=== PATIENT | male | born 1965 | race Caucasian/White ===

== ENCOUNTER 2016-09-07 22:02 | Emergency (ER) | payer MEDICAID ==
[~2016-09-07] VITALS: Ht 167.6 cm; Wt 90.7 kg
[2016-09-07 22:32] VITALS: BP 111/70
[2016-09-07] MEDS ORDERED: KETOROLAC TROMETHAMINE INJ 60 MG/2 ML VIAL IM ONE ×2 (23:30→23:45)
[2016-09-07] MEDS ORDERED: HYDROCODONE/APAP 10/325MG 1 EA TABLET PO ONE (23:30)
[2016-09-07] MEDS ORDERED: DEXAMETHASONE SOD PHOSPHATE 4 MG/ML VIAL IM ONE (23:30)
[2016-09-07] MEDS ORDERED: DEXAMETHASONE SOD PHOSPHATE 4 MG/ML VIAL ONE (23:44)
[2016-09-07] MEDS ORDERED: HYDROCODONE/APAP 10/325MG 1 EA TABLET ONE (23:44)
== END 2016-09-08 00:10 | disposition home or self-care (01) ==
LOC: ER 22:18
DX: M54.2 Cervicalgia (principal); M54.6 Pain in thoracic spine; V49.40XA Driver injured in collision with unspecified motor vehicles in traffic accident, initial encounter; Y93.89 Activity, other specified; Y92.413 State road as the place of occurrence of the external cause; Y99.8 Other external cause status
CPT/HCPCS: A4606; A6402; J1100; J1885; Z7610

== ENCOUNTER 2019-04-02 03:31 | Emergency (ER) | payer MEDICAID, OTHER ==
[2019-04-02] MEDS ORDERED: ONDANSETRON HCL/PF 4 MG/2 ML VIAL ONE (04:19)
[2019-04-02] MEDS ORDERED: NITROGLYCERIN PACKET 1 GM PACKET TD ONE (04:30)
[2019-04-02] MEDS ORDERED: NITROGLYCERIN PACKET 1 GM PACKET ONE (04:30)
[2019-04-02] MEDS ORDERED: ASPIRIN 81 MG TAB.CHEW PO ONE (04:30)
[2019-04-02] MEDS ORDERED: HYDROMORPHONE INJ 2 MG/ML DISP.SYRIN IV ONE (04:30)
[2019-04-02] MEDS ORDERED: HYDROMORPHONE INJ 2 MG/ML DISP.SYRIN ONE (04:30)
[2019-04-02] MEDS ORDERED: IV NS 0.9% 500 ML BAG IV ONE (04:30)
[2019-04-02] MEDS ORDERED: ONDANSETRON HCL/PF 4 MG/2 ML VIAL IVP ONE (04:30)
[2019-04-02] MEDS ORDERED: diphenhydrAMINE HCL 50 MG/ML VIAL IV ONE (04:30)
[2019-04-02] MEDS ORDERED: ASPIRIN 81 MG TAB.CHEW ONE (04:31)
[2019-04-02] MEDS ORDERED: diphenhydrAMINE HCL 50 MG/ML VIAL ONE (04:31)
== END 2019-04-02 08:34 | disposition home or self-care (01) ==
DX: R51 Headache (principal); R07.89 Other chest pain; R21 Rash and other nonspecific skin eruption; R20.2 Paresthesia of skin; F17.200 Nicotine dependence, unspecified, uncomplicated; Z71.6 Tobacco abuse counseling
CPT/HCPCS: 29125; 36415; 70450; 71045; 72125; 80048; 80076; 83880; 84484 ×2; 85025; 85378; 85730; 93005; 96374; 96375; 99284; 99406; J1170; J1200; J2405; J7040

== ENCOUNTER 2019-11-03 01:35 | Emergency (ER) | payer MEDICAID, OTHER ==
[~2019-11-03] VITALS: Ht 167.6 cm; Wt 83.9 kg
[2019-11-03 01:35] VITALS: BP 152/90
--- NOTE | 2019-11-03 01:50 | NUR ---
AT BEDSIDE FOR EVAL.
[2019-11-03] MEDS ORDERED: METOCLOPRAMIDE HCL 10 MG/2 ML VIAL ONE (01:54)
[2019-11-03] MEDS ORDERED: KETOROLAC TROMETHAMINE INJ 30 MG/ML VIAL ONE (01:54)
[2019-11-03] MEDS ORDERED: METOCLOPRAMIDE HCL 10 MG/2 ML VIAL IV ONE (02:00)
[2019-11-03] MEDS ORDERED: KETOROLAC TROMETHAMINE INJ 30 MG/ML VIAL IV ONE (02:00)
--- NOTE | 2019-11-03 02:00 | NUR ---
IV LINE ESTABLISHED L AC G18.
--- NOTE | 2019-11-03 02:44 | NUR ---
IV removed. Catheter intact and site benign. Pressure and 4x4 applied to site. No bleeding noted. Patient discharged to home in stable condition. Written and verbal after care instructions given. Patient verbalizes understanding of instruction.
== END 2019-11-03 02:44 | disposition home or self-care (01) ==
LOC: ER 01:37
DX: R51 Headache (principal); F17.200 Nicotine dependence, unspecified, uncomplicated
CPT/HCPCS: 96374; 96375; 99284; A4216; J1885; J2765

== ENCOUNTER 2020-10-15 14:04 | Emergency (ER) | payer MEDICAID ==
[~2020-10-15] VITALS: Ht 167.6 cm; Wt 90.7 kg
[2020-10-15] MEDS ORDERED: ONDANSETRON HCL/PF 4 MG/2 ML VIAL IVP ONE (14:30)
[2020-10-15] MEDS ORDERED: MECLIZINE HCL 12.5 MG TABLET PO ONE (14:30)
[2020-10-15] MEDS ORDERED: MECLIZINE HCL 25 MG TABLET ONE (14:33)
[2020-10-15] MEDS ORDERED: ONDANSETRON HCL/PF 4 MG/2 ML VIAL ONE (14:33)
--- NOTE | 2020-10-15 14:38 | NUR ---
BIBDAUGHTER FROM HOME TO ER BED 7. AAXO4. NOT IN RESP DISTRESS. AMBULATORY. 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 PER PT, THE ROOM IS SPINNING MAKING HIM NAUSEOUS. PT ALOS REPORTS THAT LIGHT AND SOUND AGGREVATED THE DIZZYNESS. WAS AT THE BEDSIDE Jackeline CASTRO. ORDERS RECEIVED, NOTED AND CARRIED OUT. IV LINE ESTABLISHED ON THE L AC 20. BLOOD DRAWN AND SENT TO LAB.
[2020-10-15 14:52] LABS: BASOPHILS # (AUTO) 0.2 /CMM (0.0-0.2); BASOPHILS % (AUTO) 1.6 % (0.0-2.0); EOSINOPHILS % (AUTO) 2.2 % (0.0-6.0); HEMATOCRIT 46 % (39-51); HEMOGLOBIN 15.4 g/dL (13.5-17.5); LYMPHOCYTES % (AUTO) 38.4 % (20.0-44.0); MEAN CORPUSCULAR HGB CONC 34 g/dl (31.0-36.0); MEAN CORPUSCULAR VOLUME 89 fL (80-96); MONOCYTES # (AUTO) 0.8 /CMM (0.1-1.30); MONOCYTES % (AUTO) 7.8 % (2.0-12.0); NEUTROPHILS # (AUTO) 5.3 /CMM (1.8-8.9); PLATELET COUNT (AUTO) 238 /CMM (150-450); RED BLOOD CELL COUNT(AUTO) 5.11 MIL/uL (4.5-6.0); WHITE BLOOD COUNT (AUTO) 10.5 K/uL (4.3-11.0)
--- NOTE | 2020-10-15 14:57 | NUR ---
pt to ct on sharri
[2020-10-15 14:58] LABS: CALCIUM, SERUM 8.6 mg/dL (8.5-10.1); CARBON DIOXIDE 26 mmol/L (21-32); CHLORIDE 101 mmol/L (98-107); GLUCOSE 144 mg/dL (74-106); POTASSIUM 3.2 mmol/L (3.5-5.1); SODIUM SERUM 138 mmol/L (136-145); UREA NITROGEN, BLOOD 14 mg/dL (7-18)
[2020-10-15] MEDS ORDERED: POTASSIUM CHLORIDE 20 MEQ TAB.PRT.SR PO ONE ×2 (16:00)
[2020-10-15] MEDS ORDERED: ACETAMINOPHEN ES 500 MG TABLET ONE (16:03)
[2020-10-15] MEDS ORDERED: ACETAMINOPHEN ES 500 MG TABLET PO ONE (16:30)
[2020-10-15 16:41] VITALS: BP 120/71
--- NOTE | 2020-10-15 16:41 | NUR ---
Patient discharged to home in stable condition. Written and verbal after care instructions given. Patient verbalizes understanding of instruction.IV removed. Catheter intact and site benign. Pressure and 4x4 applied to site. No bleeding noted. Pt ambulatory with a steady gait
== END 2020-10-15 16:38 | disposition home or self-care (01) ==
LOC: ER 14:13
DX: R42 Dizziness and giddiness (principal); F17.200 Nicotine dependence, unspecified, uncomplicated
CPT/HCPCS: 36415; 70450; 80048; 84484; 85025; 85730; 93005 ×2; 96374; 99285; 99406; J2405; J8597